=== PATIENT | female | born 2000 | race American Indian/Alaskan Native ===

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

== ENCOUNTER 2021-05-03 03:38 | Emergency (ER) | payer MEDICAID ==
[2021-05-03 03:47] VITALS: BP 117/81
[2021-05-03] MEDS ORDERED: IBUPROFEN 800 MG TAB PO ONE (04:39)
--- NOTE | 2021-05-03 04:47 | Emergency Department Report ---
ED Lower Extremity HPI - General Chief Complaint: Extremity Injury, Lower Stated Complaint: ANKLE BRUISING/PAIN Time Seen by Provider: 05/03/21 04:42 Source: patient Mode of arrival: Ambulatory Limitations: No Limitations - History of Present Illness Initial Comments: Patient a 21-year-old female who presents for right ankle and foot pain x2 days. States twisted and stepped on off a curb 2 days ago on trip now with 6/10 pain and swelling and discoloration to right heel and ankle. Patient states nonweightbearing at this time. Patient denies numbness or tingling there is no obvious deformity no paralysis. Complaint: ankle injury -: days(s) (3) Injury: Ankle: Right Type of Injury: eversion Place: street/outdoors Severity: moderate Severity scale (0 -10): 5 Improves With: nothing Worsens With: weight bearing Context: walking (twisted ) Associated Symptoms: snap/pop sensation, swelling, unable to bear weight - Related Data Previous Rx's Medication Instructions Recorded Last Taken Type Naproxen 500 mg PO BID PRN #30 tab 05/03/21 Unknown Rx Allergies Allergy/AdvReac Type Severity Reaction Status Date / Time No Known Allergies Allergy Verified 05/03/21 03:47 ED Review of Systems ROS: Stated complaint: ANKLE BRUISING/PAIN Other details as noted in HPI Constitutional: denies: chills, fever Eyes: denies: eye pain, eye discharge, vision change ENT: denies: ear pain, throat pain Respiratory: denies: cough, shortness of breath, wheezing Cardiovascular: denies: chest pain, palpitations Endocrine: no symptoms reported Gastrointestinal: denies: abdominal pain, nausea, diarrhea Genitourinary: denies: urgency, dysuria, discharge Musculoskeletal: denies: back pain, joint swelling (right ankle ), arthralgia Skin: denies: rash, lesions Neurological: denies: headache, weakness, paresthesias Psychiatric: denies: anxiety, depression Hematological/Lymphatic: denies: easy bleeding, easy bruising ED Past Medical Hx - Past Medical History Previous Medical History?: No Additional medical history: anemia - Surgical History Past Surgical History?: Yes Additional Surgical History: tonsilectomy, c scetion - Social History Smoking Status: Never Smoker Substance Use Type: None - Medications Home Medications: Home Medications Medication Instructions Recorded Confirmed Last Taken Type Naproxen 500 mg PO BID PRN #30 tab 05/03/21 Unknown Rx ED Physical Exam - General Limitations: No Limitations General appearance: alert, in no apparent distress - Head Head exam: Present: atraumatic, normocephalic - Eye Eye exam: Present: normal appearance, EOMI Pupils: Present: normal accommodation - ENT ENT exam: Present: mucous membranes moist - Neck Neck exam: Present: normal inspection, full ROM. Absent: tenderness - Respiratory Respiratory exam: Present: normal lung sounds bilaterally. Absent: respiratory distress - Cardiovascular Cardiovascular Exam: Present: regular rate, normal rhythm. Absent: systolic murmur, diastolic murmur, rubs, gallop - GI/Abdominal GI/Abdominal exam: Present: soft, normal bowel sounds. Absent: distended, tenderness - Rectal Rectal exam: Present: deferred - Extremities Exam Extremities exam: Present: full ROM, tenderness, joint swelling - Expanded Lower Extremity Exam Right Ankle exam: Present: full ROM, tenderness, swelling, ecchymosis. Absent: abrasion, laceration, deformity, crepidus, dislocation, erythema, anterior draw sign Foot/Toe exam: Present: full ROM, tenderness, swelling, ecchymosis, calcaneal tenderness. Absent: abrasion, laceration, deformity, crepidus, dislocation, erythema, amputation, puncture wound, foreign body, tenderness at base of 5th metatarsal, nail avulsion, subungual hematoma Neuro vascular tendon exam: Present: no vascular compromise. Absent: pulse deficit, motor deficit, sensory deficit, tendon deficit Gait: Positive: observed and limited by pain - Back Exam Back exam: Present: normal inspection, full ROM, paraspinal tenderness. Absent: muscle spasm - Neurological Exam Neurological exam: Present: alert, oriented X3 - Psychiatric Psychiatric exam: Present: normal affect, normal mood - Skin Skin exam: Present: warm, dry, intact, normal color, ecchymosis (as above right ankle Foot). Absent: rash ED Course Vital Signs 05/03/21 05/03/21 03:44 04:49 Temperature 98.3 F Pulse Rate 78 Respiratory 18 16 Rate Blood Pressure 117/81 [Left] O2 Sat by Pulse 98 Oximetry ED Lower Extremity MDM - Medical Decision Making Munroe's test is negative distal pulses are intact ENGINEERING ASSISTANT less than 3 seconds bilateral , x-ray pending plan Bandar wrap right ankle, crutches, follow-up with orthopedics in 2 to 3 days. Return to emergency department should symptoms worsen. Pain is improved at this time. Patient verbalized agreement and understanding with discharge plan. Patient will be DC'd after x-ray results. Critical care attestation.: If time is entered above; I have spent that time in minutes in the direct care of this critically ill patient, excluding procedure time. ED Disposition Clinical Impression: Right ankle sprain Qualifiers: Encounter type: initial encounter Involved ligament of ankle: unspecified ligament Qualified Code(s): S93.401A - Sprain of unspecified ligament of right ankle, initial encounter Contusion of right foot Qualifiers: Encounter type: initial encounter Qualified Code(s): S90.31XA - Contusion of right foot, initial encounter Disposition: HOME / SELF CARE / HOMELESS Is pt being admited?: No Does the pt Need Aspirin: No Condition: Stable Instructions: Elastic Bandage and RICE Therapy, Ankle Sprain Additional Instructions: Take medications as prescribed, use rice therapy as directed, crutches as directed, follow-up with your doctor in 2 to 3 days. Return to emergency take medications as prescribed, rice therapy, crutches, follow-up with your doctor in 2 to 3 days. Return to emergency department should symptoms worsen. Prescriptions: Naproxen 500 mg PO BID PRN #30 tab PRN Reason: pain Referrals: BRANDON TARIQ MD [Staff Physician] - 3-5 Days JORDEN ESCOBAR MD [Staff Physician] - 3-5 Days Forms: Work/School Release Form(ED) Time of Disposition: 05:55
[2021-05-03 06:15] LABS: HCG Qualitative,Urine Negative (Negative)
== END 2021-05-03 06:15 | disposition home or self-care (01) ==
LOC: ED 03:38
DX: S93.401A Sprain of unspecified ligament of right ankle, initial encounter (principal); S90.31XA Contusion of right foot, initial encounter; X58.XXXA Exposure to other specified factors, initial encounter; Y93.89 Activity, other specified; Y92.89 Other specified places as the place of occurrence of the external cause; Y99.8 Other external cause status
CPT/HCPCS: 81025; 99283

== ENCOUNTER 2021-05-26 17:02 | Emergency (ER) | payer MEDICAID ==
[2021-05-26 18:42] VITALS: BP 121/80
[2021-05-26 20:20] LABS: Mucus,Urine 2+ /HPF
[2021-05-26 20:23] LABS: HCG Qualitative,Urine Negative (Negative)
--- NOTE | 2021-05-26 20:31 | Emergency Department Report ---
ED Female HPI - General Chief complaint: Abdominal Pain Stated complaint: POSSIBLE STD/DISCHARGE Time Seen by Provider: 05/26/21 18:51 Source: patient Mode of arrival: Ambulatory Limitations: No Limitations - History of Present Illness Initial comments: 21-year-old black female with no past medical history presents to the emergency department for evaluation of vaginal discharge, spotting, and genital itching. She states that vaginal discharge is a light yellow color mixed with some red blood. She states that she has had some intermittent abdominal pain and cramping but denies dysuria and fever. She is unsure of her partner has any symptoms of STD. MD Complaint: vaginal bleeding, vaginal discharge, possible STD -: Gradual, days(s) (3-4) Are you Now?: No Associated Symptoms: vaginal discharge, vaginal bleeding, abdominal pain. de nies: nausea/vomiting, fever/chills, headaches, loss of appetite, dysuria, hematuria, rash, seizure, shortness of breath, syncope, weakness - Related Data Sexually active: Yes Previous Rx's Medication Instructions Recorded Last Taken Type Naproxen 500 mg PO BID PRN #30 tab 05/03/21 Unknown Rx metroNIDAZOLE [Flagyl] 500 mg PO Q12HR #14 tab 05/26/21 Unknown Rx Allergies Allergy/AdvReac Type Severity Reaction Status Date / Time No Known Allergies Allergy Verified 05/03/21 03:47 ED Review of Systems ROS: Stated complaint: POSSIBLE STD/DISCHARGE Other details as noted in HPI Constitutional: denies: chills, fever Respiratory: denies: shortness of breath Cardiovascular: denies: chest pain, palpitations Gastrointestinal: abdominal pain. denies: nausea, vomiting, diarrhea, hematemesis, melena, hematochezia Genitourinary: discharge. denies: urgency, dysuria, frequency, hematuria Neurological: denies: headache ED Past Medical Hx - Past Medical History Previous Medical History?: Yes Additional medical history: anemia - Surgical History Past Surgical History?: Yes Additional Surgical History: tonsilectomy, c scetion - Social History Smoking Status: Never Smoker Substance Use Type: None - Medications Home Medications: Home Medications Medication Instructions Recorded Confirmed Last Taken Type Naproxen 500 mg PO BID PRN #30 tab 05/03/21 Unknown Rx metroNIDAZOLE [Flagyl] 500 mg PO Q12HR #14 tab 05/26/21 Unknown Rx ED Physical Exam - General Limitations: No Limitations General appearance: alert, in no apparent distress - Head Head exam: Present: atraumatic, normocephalic - Eye Eye exam: Present: normal appearance. Absent: conjunctival injection - Neck Neck exam: Present: normal inspection. Absent: tenderness, lymphadenopathy - Respiratory Respiratory exam: Present: normal lung sounds bilaterally. Absent: respiratory distress, wheezes, rales, rhonchi, stridor, chest wall tenderness, accessory muscle use - Cardiovascular Cardiovascular Exam: Present: regular rate, normal heart sounds - GI/Abdominal GI/Abdominal exam: Present: soft, normal bowel sounds. Absent: distended, guarding, rebound, rigid - Rectal Rectal exam: Present: deferred - External exam: Present: normal external exam Speculum exam: Present: vaginal discharge (For cough whitish), vaginal bleeding. Absent: cervical discharge, foreign body Bi-manual exam: Absent: cervical motion tendernes, adnexal tenderness, adnexal mass, uterine enlargement, uterine tenderness - Extremities Exam Extremities exam: Present: normal inspection, normal capillary refill - Back Exam Back exam: Present: normal inspection. Absent: CVA tenderness (R), CVA tenderness (L) - Neurological Exam Neurological exam: Present: alert, oriented X3, normal gait - Psychiatric Psychiatric exam: Present: normal affect, normal mood - Skin Skin exam: Present: warm, dry, intact, normal color ED Course Vital Signs 05/26/21 18:38 Temperature 98.4 F Pulse Rate 79 Respiratory 18 Rate Blood Pressure 121/80 O2 Sat by Pulse 100 Oximetry ED Medical Decision Making - Medical Decision Making 21-year-old black female with no past medical history presents to the emergency department for evaluation of vaginal discharge, spotting, and genital itching. She states that vaginal discharge is a light yellow color mixed with some red blood. She states that she has had some intermittent abdominal pain and cramping but denies dysuria and fever. She is unsure of her partner has any symptoms of STD. Wet prep positive for bacterial vaginosis. UA without urinary tract infection. Patient eloped from emergency department before results were reviewed and before she could get prescription. Critical care attestation.: If time is entered above; I have spent that time in minutes in the direct care of this critically ill patient, excluding procedure time. ED Disposition Clinical Impression: Bacterial vaginosis Disposition: HOME / SELF CARE / HOMELESS Is pt being admited?: No Does the pt Need Aspirin: No Condition: Stable Instructions: Bacterial Vaginosis, [id number], Bacterial Vaginosis (ED), Abdominal Pain (ED) Additional Instructions: Take medications as prescribed. Follow-up with HEARING AIDE TECHNICIAN for further evaluation and management. Return to the emergency department as needed Prescriptions: metroNIDAZOLE [Flagyl] 500 mg PO Q12HR #14 tab Referrals: PRIMARY CARE, [Primary Care Provider] - 3-5 Days Forms: STI Treatment and Prevention Time of Disposition: 20:31
[2021-05-26 20:49] LABS: Blood,Urine Moderate (Negative); Color,Urine Yellow (Yellow)
[2021-05-26 20:50] LABS: Bilirubin,Urine NEG (Negative); Protein,Urine <15 mg/dL mg/dL (Negative); Urobilinogen,Urine < 2.0 mg/dL (<2.0)
== END 2021-05-26 19:00 | disposition home or self-care (01) ==
LOC: ED 17:02
DX: N76.0 Acute vaginitis (principal); B96.89 Other specified bacterial agents as the cause of diseases classified elsewhere; Z90.89 Acquired absence of other organs; Z98.890 Other specified postprocedural states; Z79.899 Other long term (current) drug therapy
CPT/HCPCS: 81001; 81025; 87210; 87591; 99284